=== PATIENT | male | born 1965 | race Caucasian/White ===

== ENCOUNTER 2018-03-19 08:49 | Day surgery (SDC) | payer BC ==
[2018-03-15 15:53] VITALS: BMI 39.1
[2018-03-19] MEDS ORDERED: DEXAMETHASONE SOD PHOSPHATE 4 MG/1 ML VIAL ONE (10:13)
[2018-03-19] MEDS ORDERED: MIDAZOLAM HCL 2 MG/2 ML SINGLE DOSE VIAL ONE ×2 (10:14)
--- NOTE | 2018-03-19 11:23 | OP ---
Operative Note - Note: Operative Date: 03/19/18 Pre-Operative Diagnosis: Right renal stone Operation: Right ESWL Findings: 7 mm mid pole Right renal stone Post-Operative Diagnosis: Same as Pre-op Surgeon: Brendon Cordero Anesthesia: Fractional Estimated Blood Loss (mls): 0
[2018-03-19] MEDS ORDERED: ONDANSETRON 4 MG/2 ML VIAL IVPUSH PRN (13:17)
[2018-03-19] MEDS ORDERED: PROMETHAZINE HCL 25 MG/1 ML VIAL IVPB PRN (13:17)
[2018-03-19] MEDS ORDERED: LACTATED RINGERS SOLUTION 1,000 ML IV SCH (13:30)
[2018-03-19 15:04] VITALS: BP 131/86; PULSE 68; TEMP 97.5
--- NOTE | 2018-04-03 07:40 | OP ---
DATE OF OPERATION: 03/19/2018 PREOPERATIVE DIAGNOSIS: Right renal stone. POSTOPERATIVE DIAGNOSIS: Right renal stone. PROCEDURE PERFORMED: Right extracorporeal shock wave lithotripsy. SURGEON: Mahi Baez MD ANESTHESIA: General. DESCRIPTION OF PROCEDURE: The patient was brought to the operating room and placed in the supine position on the operating room table. Ultrasonography and fluoroscopy were performed. A 7-mm right mid pole stone was identified. Fractional anesthesia was then administered. Shock wave lithotripsy was then started; 2500 impulses at 17 joules of power were administered to the stone with excellent fragmentation under real time ultrasonography and fluoroscopy. No complications were noted. The patient tolerated the procedure very well. MAHI BAEZ M.D. [id number]
== END 2018-03-19 13:00 | disposition home or self-care (01) ==
LOC: JASU-SURG 08:49
PROVIDERS: ATTEND Urology
PROC: 0TF3XZZ Fragmentation in Right Kidney Pelvis, External Approach (ICD-10-PCS; principal; 2018-03-19 10:15)
DX: N20.0 Calculus of kidney (principal)
CPT/HCPCS: 94760